=== PATIENT | male | born 1960 | race Caucasian/White ===

== ENCOUNTER 2017-01-09 09:00 | Inpatient (IN) | payer OTHER ==
[~2017-01-09] VITALS: Ht 188 cm; Wt 77.0 kg
[2017-01-10 05:18] LABS: HGB 12.2 g/dl (13.2-18.0); MCH 28.6 pg (25.0-31.0); MCHC 33.9 g/dL (32.0-36.0); MCV 84.3 fL (78.0-100.0); MPV 11.2 fL (6.0-9.5); RBC 4.27 M/uL (4.70-6.00); RDW 12.8 % (11.5-14.0); WBC 10.2 K/uL (4.0-10.5)
[2017-01-10 05:34] LABS: CREATININE 0.9 mg/dL (0.7-1.2)
[2017-01-10] MEDS ORDERED: ASPIRIN CHEWABL81 MG PO (18:58)
[2017-01-10] MEDS ORDERED: COZAAR 25MG TAB25 MG PO (18:58)
[2017-01-10] MEDS ORDERED: SYNTHROID75 MCG PO (18:59)
[2017-01-10] MEDS ORDERED: INDERAL20 MG PO (18:59)
[2017-01-10] MEDS ORDERED: VOLTAREN **OUT75 MG PO (18:59)
[2017-01-10] MEDS ORDERED: VITAMIN B COMP1 EACH PO (18:59)
[2017-01-10] MEDS ORDERED: LIPITOR20 MG PO (19:00)
[2017-01-10] MEDS ORDERED: PROTONIX 40MG T40 MG PO (19:00)
[2017-01-10] MEDS ORDERED: PERCOCET 5-3251 EACH PO (19:01)
[2017-01-10] MEDS ORDERED: XARELTO10 MG PO (19:01)
== END 2017-01-10 14:35 | disposition home or self-care (01) | DRG 470 ==
LOC: FMS 09:00
PROVIDERS: ADMIT Orthopaedic Surgery
PROC: 0SRB04A Replacement of Left Hip Joint with Ceramic on Polyethylene Synthetic Substitute, Uncemented, Open Approach (ICD-10-PCS; principal; 2017-01-09 07:00)
DX: M87.852 Other osteonecrosis, left femur (principal); I10 Essential (primary) hypertension; M16.12 Unilateral primary osteoarthritis, left hip; M19.90 Unspecified osteoarthritis, unspecified site
CPT/HCPCS: 36415; 73501; 76000; 80048; 86850; 86900; 86901; 88304; 88311; 94010; 94667; 94668; 94760; 94762; 97116; 97162; 97165; 97530-GP; 97535; C1776; J0131; J0697; J1100; J1170; J1885; J2270; J2405; J2704; J2710; J2795; J3010